=== PATIENT | male | born 1980 | race African-American/Black ===

== ENCOUNTER 2017-04-07 09:49 | Emergency (ER) | payer SELFPAY ==
[~2017-04-07 09:49] MED LIST: CIPRO.3%O EACH EAR; IBUP800 PO; Z.0.NO CURRENT MEDS
[2017-04-07 09:51] VITALS: BP 130/76; PULSE 89; RESP 15; TEMP 98.2; O2SAT 99
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
[2017-04-07] MEDS ORDERED: IBUP800T23 PO (10:13)
[2017-04-07] MEDS ORDERED: ROBA500T PO (10:13)
[2017-04-07] MEDS ORDERED: IBUPROFEN 800 MG TAB PO ONE (10:15)
[2017-04-07] MEDS ORDERED: METHOCARBAMOL 500 MG TAB PO ONE (10:15)
== END 2017-04-07 10:26 | disposition home or self-care (01) ==
LOC: NEPK 09:49
DX: M54.2 Cervicalgia (principal); M25.511 Pain in right shoulder
CPT/HCPCS: 99283

== ENCOUNTER 2017-05-07 21:54 | Emergency (ER) | payer SELFPAY ==
[~2017-05-07 21:54] MED LIST changes: -CIPRO.3%O EACH EAR; -IBUP800 PO; +IBUP800T23 PO; +ROBA500T PO; -Z.0.NO CURRENT MEDS
[2017-05-07 21:58] VITALS: BP 122/70; PULSE 100; RESP 16; TEMP 98.4; O2SAT 98
== END 2017-05-07 22:25 | disposition left against medical advice (07) ==
LOC: NED 21:54
DX: Z53.29 Procedure and treatment not carried out because of patient's decision for other reasons (principal)
CPT/HCPCS: 99281

== ENCOUNTER 2017-05-08 17:08 | Emergency (ER) | payer SELFPAY ==
[~2017-05-08] VITALS: Ht 180.3 cm; Wt 87.0 kg
[2017-05-08 17:09] VITALS: BP 120/75; PULSE 86; RESP 20; TEMP 97.8; O2SAT 98
--- NOTE | 2017-05-08 18:59 | PD ---
HPI Chief Complaint: Cold / Flu Symptoms Time Seen by Provider: 18:56 Travel History International Travel<30 days: No Contact w/Intl Traveler<30days: No Traveled to known affect area: No History of Present Illness HPI 36-year-old male presents to emergency department for evaluation of left groin pain. 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 Denies any other injury. Denies any abdominal pain. No nausea or vomiting. No bowel changes. No urinary symptoms. Patient has no other symptoms to report. [facility] Past Medical History Medical History: Denies Significant Hx Diminished Hearing: No Tetanus Vaccination: > 5 Years Influenza Vaccination: No Past Surgical History Surgical History: No Previous Surgery Social History Alcohol Use: Yes (6 PK DAY) Tobacco Use: Yes (2 PPD) Substance Use: Yes ([place]) Allergies-Medications (Allergen,Severity, Reaction): Coded Allergies: Penicillin (Verified Allergy, Unknown, 05/08/17) Reported Meds & Prescriptions Reported Meds & Active Scripts Active No Active Prescriptions or Reported Medications Review of Systems Except as stated in HPI: all other systems reviewed are Neg Physical Exam Narrative GENERAL: Well-nourished male patient in no acute distress SKIN: Focused skin assessment warm/dry. HEAD: Atraumatic. Normocephalic. EYES: Pupils equal and round. No scleral icterus. No injection or drainage. ENT: No nasal bleeding or discharge. Mucous membranes pink and moist. NECK: Trachea midline. No JVD. CARDIOVASCULAR: Regular rate and rhythm. No murmur appreciated. RESPIRATORY: No accessory muscle use. Clear to auscultation. Breath sounds equal bilaterally. GASTROINTESTINAL: Abdomen soft, non-tender, nondistended. Hepatic and splenic margins not palpable. MUSCULOSKELETAL: No obvious deformities. No clubbing. No cyanosis. No edema. GENITOURINARY: Testes descended bilaterally without evidence of rotation. No lesions or erythema. No urethral discharge. Palpable inguinal hernia on the left, soft, reducible. NEUROLOGICAL: Awake and alert. No obvious cranial nerve deficits. Motor grossly within normal limits. Normal speech. Data Data Last Documented VS Vital Signs Date Time Temp Pulse Resp B/P Pulse Ox O2 Delivery O2 Flow Rate FiO2 05/08/17 18:38 Room Air 05/08/17 17:09 97.8 86 20 120/75 98 MDM Medical Decision Making Medical Screen Exam Complete: Yes Emergency Medical Condition: Yes Medical Record Reviewed: Yes Differential Diagnosis Hernia incarcerated versus reducible versus muscle strain versus spasm Narrative Course 36-year-old male presents to emergency department for evaluation left groin pain. Physical exam is consistent with an inguinal hernia. This is completely reducible on its own. Patient also has a nonproductive, dry cough. He is encouraged to stop looking tobacco cigarettes. He is advised follow-up with primary care provider and seek general surgery evaluation. Patient agrees to return immediately with any acute worsening symptoms. Diagnosis Primary Impression: Left inguinal hernia Additional Impressions: Cough Tobacco abuse Referrals: General Surgeon Primary Care Physician Patient Instructions: Cigarette Smoking and Your Health (GEN), General Instructions, Inguinal Hernia (ED) Additional Instructions: Avoid heavy lifting Avoid straining with bowel movements Follow up with a primary care provider Return to ED with acute worsening of symptoms Med/Other Pt SpecificInfo: No Change to Meds Scripts No Active Prescriptions or Reported Meds Disposition: 01 DISCHARGE HOME Condition: Stable Oma Balderas May 08, 2017 18:59
== END 2017-05-08 19:33 | disposition home or self-care (01) ==
LOC: NEPD 17:08
DX: K40.90 Unilateral inguinal hernia, without obstruction or gangrene, not specified as recurrent (principal); R05 Cough; F17.210 Nicotine dependence, cigarettes, uncomplicated
CPT/HCPCS: 99281

== ENCOUNTER 2018-04-10 03:58 | Emergency (ER) | payer SELFPAY ==
[2018-04-10 04:06] VITALS: BP 121/80; PULSE 86; RESP 15; TEMP 97.7; O2SAT 98
[2018-04-10] MEDS ORDERED: METOCLOPRAMIDE HCL 10 MG/2 ML VIAL IV PUSH ONE (04:45)
[2018-04-10] MEDS ORDERED: KETOROLAC TROMETHAMINE 30 MG/ML (IVP) VIAL IV PUSH ONE (04:45)
[2018-04-10] MEDS ORDERED: HYDROmorphone HCL PF 2 MG/ML VIAL IV PUSH ONE ×2 (04:45→06:00)
--- NOTE | 2018-04-10 04:48 | PD ---
HPI Chief Complaint: Lump, Cyst, Hernia Time Seen by Provider: 04:42 Travel History International Travel<30 days: No Contact w/Intl Traveler<30days: No Traveled to known affect area: No History of Present Illness HPI 37-year-old male presents to the emergency department by private transportation for complaint of left groin swelling and pain associated with left inguinal hernia. Patient has had symptoms since awakening this morning. Patient noted hernia was more prominent this morning and worsened with cough. Patient was not able to reduce the hernia on his own. Patient has had diagnosis of left inguinal hernia 1 year. Patient was just seen 04/08/18 for same complaint and at that time hernia was reportedly readily reducible. Patient was encouraged to make an appointment with surgery for surgical repair on an elective basis of a left inguinal hernia. Patient states that he has not seen a surgeon regarding his. Patient's had no nausea or vomiting. No report of testicular pain no report of penile discharge or dysuria. Patient was up out of bed to urinate and did so without difficulty. Patient denies any chronic medical conditions. Patient takes no medications on a routine basis. Patient does admit to chronic cough associated with tobacco use. Patient does not report any fever or chills. The patient rates his pain 9/10 in intensity and reports it radiates to the left lower quadrant of the abdomen. Patient is unable to identify alleviating factors coughing and palpation and standing increases his discomfort. [facility] Past Medical History Narrative Medical Left inguinal hernia; alcohol use tobacco use marijuana use; nursing notes reviewed Diminished Hearing: No Past Surgical History Surgical History: No Previous Surgery Social History Alcohol Use: Yes (6 PK DAY) Tobacco Use: Yes (2 PPD) Substance Use: Yes ([facility]) Allergies-Medications (Allergen,Severity, Reaction): Coded Allergies: penicillin G (Unverified Allergy, Unknown, 04/10/18) Reported Meds & Prescriptions Reported Meds & Active Scripts Active No Active Prescriptions or Reported Medications Review of Systems Except as stated in HPI: all other systems reviewed are Neg General / Constitutional: No: Fever HENT: No: Congestion Cardiovascular: No: Chest Pain or Discomfort Respiratory: No: Shortness of Breath Gastrointestinal: Positive: Abdominal Pain, No: Vomiting Genitourinary: Positive: Other, No: Dysuria, Flank Pain Musculoskeletal: No: Myalgias, Arthralgias Skin: No Rash (Groin pain) Neurologic: No: Weakness Psychiatric: No: Anxiety Hematologic/Lymphatic: No: Lymph Node Enlargement Physical Exam Narrative GENERAL: Well-developed well-nourished male no acute distress no respiratory distress SKIN: Warm and dry. HEAD: Normocephalic. EYES: No scleral icterus. No injection or drainage. NECK: Supple, trachea midline. No JVD or lymphadenopathy. CARDIOVASCULAR: Regular rate and rhythm without murmurs, gallops, or rubs. RESPIRATORY: Breath sounds equal bilaterally. No accessory muscle use. GASTROINTESTINAL: Abdomen soft, non-tender, nondistended. bilaterally descended testicles circumcised male with no penile discharge at the urethral meatus attention left groin palpable mass that reproduces tenderness to palpation and mild difficulty with reduction on first attempt MUSCULOSKELETAL: No cyanosis, or edema. BACK: Nontender without obvious deformity. No CVA tenderness. Data Data Last Documented VS Vital Signs Date Time Temp Pulse Resp B/P (MAP) Pulse Ox O2 Delivery O2 Flow Rate FiO2 04/10/18 04:06 97.7 86 15 121/80 (94) 98 Orders Orders Ice/Cold Pack (04/10/18 04:42) ^ Saline Lock (04/10/18 04:42) Hydromorphone Pf Inj (Dilaudid Pf Inj) (04/10/18 04:45) Metoclopramide Inj (Reglan Inj) (04/10/18 04:45) Ketorolac Inj (Toradol Inj) (04/10/18 04:45) Complete Blood Count With Diff (04/10/18 04:42) Basic Metabolic Panel (Bmp) (04/10/18 04:42) Hydromorphone Pf Inj (Dilaudid Pf Inj) (04/10/18 06:00) Ct Abd/Pel W Iv Contrast(Rout) (04/10/18 ) Iohexol 350 Inj (Omnipaque 350 Inj) (04/10/18 06:15) Labs Laboratory Tests Test 04/10/18 05:02 White Blood Count 9.3 TH/MM3 Red Blood Count 4.21 MIL/MM3 Hemoglobin 13.8 GM/DL Hematocrit 40.4 % Mean Corpuscular Volume 96.0 FL Mean Corpuscular Hemoglobin 32.7 PG Mean Corpuscular Hemoglobin Concent 34.0 % Red Cell Distribution Width 13.1 % Platelet Count 259 TH/MM3 Mean Platelet Volume 7.0 FL Neutrophils (%) (Auto) 38.5 % Lymphocytes (%) (Auto) 52.3 % Monocytes (%) (Auto) 6.2 % Eosinophils (%) (Auto) 2.4 % Basophils (%) (Auto) 0.6 % Neutrophils # (Auto) 3.6 TH/MM3 Lymphocytes # (Auto) 4.9 TH/MM3 Monocytes # (Auto) 0.6 TH/MM3 Eosinophils # (Auto) 0.2 TH/MM3 Basophils # (Auto) 0.1 TH/MM3 CBC Comment AUTO DIFF Differential Total Cells Counted 100 Neutrophils % (Manual) 33 % Lymphocytes % 59 % Monocytes % 5 % Eosinophils % 3 % Neutrophils # (Manual) 3.1 TH/MM3 Differential Comment FINAL DIFF MANUAL Platelet Estimate NORMAL Platelet Morphology Comment NORMAL Stomatocytes 1+ Blood Urea Nitrogen 10 MG/DL Creatinine 0.90 MG/DL Random Glucose 85 MG/DL Calcium Level 8.1 MG/DL Sodium Level 143 MEQ/L Potassium Level 3.6 MEQ/L Chloride Level 109 MEQ/L Carbon Dioxide Level 25.6 MEQ/L Anion Gap 8 MEQ/L Estimat Glomerular Filtration Rate 116 ML/MIN MDM Medical Decision Making Medical Screen Exam Complete: Yes Emergency Medical Condition: Yes Medical Record Reviewed: Yes Interpretation(s) CBC & BMP Diagram 04/10/18 05:02 Calcium Level 8.1 L Vital Signs Date Time Temp Pulse Resp B/P (MAP) Pulse Ox O2 Delivery O2 Flow Rate FiO2 04/10/18 04:06 97.7 86 15 121/80 (94) 98 Last Impressions Abdomen/Pelvis CT 04/10/18 0000 Signed Impressions: CONCLUSION: 1. Herniation of fat through the left inguinal canal into the left scrotum ext ending over a length of at least 11 cm and a diameter of up to 5.7 cm with some fluid attenuation in the left scrotum. 2. Thin-walled cysts or emphysematous change at the lung bases of unknown etio logy. This should be further evaluated with chest CT. Differential Diagnosis Inguinal hernia incarcerated versus strangulated versus reducible, abdominal wall strain, UTI, groin mass Narrative Course Patient placed supine in mild Trendelenburg with ice pack to the left groin Reglan 10 mg IV administered Dilaudid 1 mg IV administered Toradol 30 mg IV administered Attempted manual reduction performed after ice pack Dilaudid and Toradol mass is markedly improved but still has some soft tissue prominence patient rates discomfort as mild 2-3/10 intensity additional Dilaudid 0.5 mg IV administered patient will be sent for CT abdomen pelvis with contrast to evaluate further to evaluate to see if any residual intestine and inguinal canal ring can be palpated with no palpable soft tissue mass however may be related to residual retained fat. Patient is aware of plan for CT imaging. Patient has returned from CT again with marked corneal prominence extending to the scrotum; patient does not appear to have a strangulated hernia but does appear to have an incarcerated hernia call placed to general surgery Physician Communication Physician Communication call placed to regional psychiatric director general surgery Dr Dixon --Dr Dixon WBI 7:30 Diagnosis Primary Impression: Left inguinal hernia Scripts No Active Prescriptions or Reported Meds Chyna Perez MD Apr 10, 2018 04:48
[2018-04-10 05:16] LABS: AUTOMATED NEUTROPHIL # 3.6 TH/MM3 (1.8-7.7); BASOPHIL # 0.1 TH/MM3 (0-0.2); BASOPHIL % 0.6 % (0.0-2.0); EOSINOPHIL # 0.2 TH/MM3 (0-0.4); EOSINOPHIL % 2.4 % (0.0-4.0); HEMATOCRIT 40.4 % (39.0-51.0); HEMOGLOBIN 13.8 GM/DL (13.0-17.0); LYMPH % 52.3 % (9.0-44.0); LYMPHOCYTE # 4.9 TH/MM3 (1.0-4.8); MEAN CORPUSCULAR HEMOGLOBIN 32.7 PG (27.0-34.0); MONO % 6.2 % (0.0-8.0); MONOCYTE # 0.6 TH/MM3 (0-0.9); NEUT % 38.5 % (16.0-70.0); PLATELET COUNT 259 TH/MM3 (150-450); RED BLOOD COUNT 4.21 MIL/MM3 (4.50-5.90); RED CELL DISTRIBUTION WIDTH 13.1 % (11.6-17.2); WHITE BLOOD COUNT 9.3 TH/MM3 (4.0-11.0)
[2018-04-10 05:39] LABS: BICARBONATE 25.6 MEQ/L (21.0-32.0); CALCIUM 8.1 MG/DL (8.5-10.1); CREATININE 0.9 MG/DL (0.60-1.30)
[2018-04-10 05:51] LABS: LYMPHOCYTES 59 % (9-44); MONOCYTES 5 % (0-8); NEUTROPHIL # MANUAL DIFF 3.1 TH/MM3 (1.8-7.7); POLYS (SEG NEUTROPHILS) 33 % (16-70)
[2018-04-10 05:52] LABS: STOMATOCYTES 1+ (NORMAL)
[2018-04-10] MEDS ORDERED: IOHEXOL 350 MG/ML 10 ML VIAL (for RAD DIAG) IVCONTRAST ONE (06:15)
--- NOTE | 2018-04-10 06:46 | RADRPT ---
EXAM DATE: 04/10/2018 6:17 AM EDT AGE/SEX: 37 years / Male INDICATIONS: Left groin pain. CLINICAL DATA: This is the patient's initial encounter. Patient reports that signs and symptoms have been present for 4 - 6 days and indicates a pain score of 10/10. MEDICAL/SURGICAL HISTORY: . Inguinal hernia. None. ORAL CONTRAST: No oral contrast ingested. RADIATION DOSE: 6.57 CTDI (mGy) COMPARISON: No prior exams available for comparison. TECHNIQUE: Multiple contiguous axial images were obtained through the abdomen and pelvis following b olus infusion of 100 ml Omnipaque 350 (iohexol) nonionic water-soluble contrast as a single exam do se. No oral contrast ingested. Using automated exposure control and adjustment of the mA and/or kV a ccording to patient size, the radiation dose was kept as low as reasonably achievable to obtain optim al diagnostic quality images. FINDINGS: There is herniation of fat through the left inguinal canal into the scrotum extending over a length o f at least 11 cm and a diameter of up to about 5.7 cm. There is some fluid within the upper left scro yuliya. No herniation of bowel is identified. Lung bases demonstrate some basilar lung cystic changes of unknown etiology. This may be an early man ifestation of emphysema. There is some dependent atelectasis. Liver, spleen, adrenals, kidneys and pancreas are unremarkable. No calcified gallstones or biliary du ctal dilatation. There is no free fluid or free air. No bowel obstruction. No acute bony abnormalities. CONCLUSION: 1. Herniation of fat through the left inguinal canal into the left scrotum extending over a length o f at least 11 cm and a diameter of up to 5.7 cm with some fluid attenuation in the left scrotum. 2. Thin-walled cysts or emphysematous change at the lung bases of unknown etiology. This should be f urther evaluated with chest CT. Electronically signed by: Jason Macario MD 04/10/2018 6:45 AM EDT
--- NOTE | 2018-04-10 07:59 | PD ---
Physical Exam Date Seen by Provider: Apr 10, 2018 Time Seen by Provider: 07:00 Narrative Patient signed out to me by Dr. Perez at change of shift. This is a 37-year- old male who had an inguinal hernia that was. Patient was slotted to see Dr. Dixon. Dr. Dixon came down and evaluated the patient and states that he will see the patient has an outpatient. It is a fat-containing hernia without bowel. Data Data Last Documented VS Vital Signs Date Time Temp Pulse Resp B/P (MAP) Pulse Ox O2 Delivery O2 Flow Rate FiO2 04/10/18 04:06 97.7 86 15 121/80 (94) 98 Orders Orders Ice/Cold Pack (04/10/18 04:42) ^ Saline Lock (04/10/18 04:42) Hydromorphone Pf Inj (Dilaudid Pf Inj) (04/10/18 04:45) Metoclopramide Inj (Reglan Inj) (04/10/18 04:45) Ketorolac Inj (Toradol Inj) (04/10/18 04:45) Complete Blood Count With Diff (04/10/18 04:42) Basic Metabolic Panel (Bmp) (04/10/18 04:42) Hydromorphone Pf Inj (Dilaudid Pf Inj) (04/10/18 06:00) Ct Abd/Pel W Iv Contrast(Rout) (04/10/18 ) Iohexol 350 Inj (Omnipaque 350 Inj) (04/10/18 06:15) Labs Laboratory Tests Test 04/10/18 05:02 White Blood Count 9.3 TH/MM3 Red Blood Count 4.21 MIL/MM3 Hemoglobin 13.8 GM/DL Hematocrit 40.4 % Mean Corpuscular Volume 96.0 FL Mean Corpuscular Hemoglobin 32.7 PG Mean Corpuscular Hemoglobin Concent 34.0 % Red Cell Distribution Width 13.1 % Platelet Count 259 TH/MM3 Mean Platelet Volume 7.0 FL Neutrophils (%) (Auto) 38.5 % Lymphocytes (%) (Auto) 52.3 % Monocytes (%) (Auto) 6.2 % Eosinophils (%) (Auto) 2.4 % Basophils (%) (Auto) 0.6 % Neutrophils # (Auto) 3.6 TH/MM3 Lymphocytes # (Auto) 4.9 TH/MM3 Monocytes # (Auto) 0.6 TH/MM3 Eosinophils # (Auto) 0.2 TH/MM3 Basophils # (Auto) 0.1 TH/MM3 CBC Comment AUTO DIFF Differential Total Cells Counted 100 Neutrophils % (Manual) 33 % Lymphocytes % 59 % Monocytes % 5 % Eosinophils % 3 % Neutrophils # (Manual) 3.1 TH/MM3 Differential Comment FINAL DIFF MANUAL Platelet Estimate NORMAL Platelet Morphology Comment NORMAL Stomatocytes 1+ Blood Urea Nitrogen 10 MG/DL Creatinine 0.90 MG/DL Random Glucose 85 MG/DL Calcium Level 8.1 MG/DL Sodium Level 143 MEQ/L Potassium Level 3.6 MEQ/L Chloride Level 109 MEQ/L Carbon Dioxide Level 25.6 MEQ/L Anion Gap 8 MEQ/L Estimat Glomerular Filtration Rate 116 ML/MIN MDM Medical Record Reviewed: Yes Supervised Visit with JAMIE: No Narrative Course 37-year-old gentleman presents with a hernia. This was in the left inguinal area. Patient was evaluated by Dr. Dixon who evaluated him and will see him as an outpatient and schedule procedure if needed. The patient is wanting to go home. He will be discharged home and told to return if he develops any nausea vomiting inability to have a bowel movement or any other recent concerns in. Diagnosis Primary Impression: Left inguinal hernia Referrals: Jabari Dixon MD Additional Instruction: Return if increased pain, nausea vomiting, inability to have bowel movement, or any other reason that concerns her. Scripts No Active Prescriptions or Reported Meds Disposition: 01 DISCHARGE HOME Condition: Stable Rio Crawford MD Apr 10, 2018 07:59
--- NOTE | 2018-04-10 13:09 | PD.CONS ---
HPI Service General surgery Consult Requested By Dr. Perez Reason for Consult Left inguinal hernia Primary Care Physician No Primary Care Physician History of Present Illness The patient is a 37-year-old male who presents with complaints of left inguinal and left lower abdominal pain which began early this morning. The patient has a known left inguinal hernia which has been present for approximately 1 year. 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 He came to the emergency department about 1 year ago and was recommended to see a surgeon. However he has not had insurance and was unable to follow up with anyone. The patient has a chronic bulge, however, this morning when he woke up with the more severe pain the bulge was larger. He had attempted reduction in the emergency department and it was felt that at least a portion of the hernia was reduced. However there did appear to be a persistent bulge and a CT abdomen and pelvis showed fat present in the left inguinal canal and left hemiscrotum. During my examination, the patient states that his pain is completely gone and he is hungry and desires discharge. The pain that he had when he presented is completely resolved. He denies ever having nausea vomiting constipation. I suspect he may have had enlarged hernia or involved intestines that were reduced. Review of Systems Constitutional: DENIES: Fever, Chills Eyes: DENIES: Eye pain, Vision loss Ears, nose, mouth, throat: DENIES: Oral lesions, Throat pain Respiratory: DENIES: Cough, Shortness of breath Cardiovascular: DENIES: Chest pain, Palpitations Gastrointestinal: COMPLAINS OF: Abdominal pain, DENIES: Nausea, Vomiting Musculoskeletal: DENIES: Back pain, Neck pain Integumentary: DENIES: Pruritus, Rash Neurologic: DENIES: Paresthesias, Seizures Past Family Social History Past Medical History Left inguinal hernia Past Surgical History None Reported Medications None Allergies: Coded Allergies: penicillin G (Unverified Allergy, Unknown, 04/10/18) Family History Noncontributory Social History Smokes 2 packs per day. Drinks sixpack daily. He is marijuana. Physical Exam Vital Signs Vital Signs Date Time Temp Pulse Resp B/P (MAP) Pulse Ox O2 Delivery O2 Flow Rate FiO2 04/10/18 04:06 97.7 86 15 121/80 (94) 98 Physical Exam GENERAL: Awake and alert. No acute distress. Cooperative. HEAD: Normocephalic. Atraumatic. EYES: Pupils equal round and reactive to light bilaterally. No scleral icterus. ENT: Moist oral mucosa. NECK: Trachea midline. CHEST: Nonlabored breathing. No respiratory distress. CARDIOVASCULAR: Regular rate and rhythm. ABDOMEN: Soft nontender nondistended. Fairly large left inguinal hernia which are now unable to reduce. He is nontender and there are no skin changes. He states this is the same as it is been for a long time. EXTREMITIES: No cyanosis or edema. SKIN: Warm, dry, nonjaundiced. Laboratory Laboratory Tests Test 04/10/18 05:02 White Blood Count 9.3 Red Blood Count 4.21 Hemoglobin 13.8 Hematocrit 40.4 Mean Corpuscular Volume 96.0 Mean Corpuscular Hemoglobin 32.7 Mean Corpuscular Hemoglobin Concent 34.0 Red Cell Distribution Width 13.1 Platelet Count 259 Mean Platelet Volume 7.0 Neutrophils (%) (Auto) 38.5 Lymphocytes (%) (Auto) 52.3 Monocytes (%) (Auto) 6.2 Eosinophils (%) (Auto) 2.4 Basophils (%) (Auto) 0.6 Neutrophils # (Auto) 3.6 Lymphocytes # (Auto) 4.9 Monocytes # (Auto) 0.6 Eosinophils # (Auto) 0.2 Basophils # (Auto) 0.1 CBC Comment AUTO DIFF Differential Total Cells Counted 100 Neutrophils % (Manual) 33 Lymphocytes % 59 Monocytes % 5 Eosinophils % 3 Neutrophils # (Manual) 3.1 Differential Comment FINAL DIFF MANUAL Platelet Estimate NORMAL Platelet Morphology Comment NORMAL Stomatocytes 1+ Blood Urea Nitrogen 10 Creatinine 0.90 Random Glucose 85 Calcium Level 8.1 Sodium Level 143 Potassium Level 3.6 Chloride Level 109 Carbon Dioxide Level 25.6 Anion Gap 8 Estimat Glomerular Filtration Rate 116 Result Diagram: 04/10/18 0502 04/10/18 0502 Imaging Last Impressions Abdomen/Pelvis CT 04/10/18 0000 Signed Impressions: CONCLUSION: 1. Herniation of fat through the left inguinal canal into the left scrotum ext ending over a length of at least 11 cm and a diameter of up to 5.7 cm with some fluid attenuation in the left scrotum. 2. Thin-walled cysts or emphysematous change at the lung bases of unknown etio logy. This should be further evaluated with chest CT. Assessment and Plan Assessment and Plan 37-year-old male with left inguinal hernia incarcerated with fat likely omentum. He states this is consistent with how it has been in the past. He did have worsening pain this morning but after partial reduction is completely improved. He wants to go home. I am fine with discharge and gave him the signs and symptoms to look for for strangulation. He will call my office for follow-up appointment. Zack,Jabari PRAKASH Apr 10, 2018 13:09
== END 2018-04-10 08:05 | disposition home or self-care (01) ==
LOC: NEPC 03:58
DX: K40.30 Unilateral inguinal hernia, with obstruction, without gangrene, not specified as recurrent (principal); F17.210 Nicotine dependence, cigarettes, uncomplicated; F12.90 Cannabis use, unspecified, uncomplicated
CPT/HCPCS: 74177; 80048; 85007; 85027; 96374; 96375; 96376; 99284; J1170; J1885; J2765; Q9967

== ENCOUNTER 2018-07-01 10:27 | Inpatient (IN) ==
[2018-07-01] MEDS ORDERED: Morphine Inj 4 MG/ML Vial IV.PUSH ONE (11:46)
--- NOTE | 2018-07-01 11:52 | ED ---
HPI General Chief complaint: Extremity Problem,Nontraumatic Stated complaint: groin pain WC Time Seen by Provider: 07/01/18 10:42 Source: patient, RN notes reviewed and old records reviewed Mode of arrival: ambulatory Limitations: no limitations History of Present Illness HPI Narrative: 37-year-old male states he has had his hernia out since yesterday and cannot get it back again. He was transferred from fast track when they could not get it back in either. He denies any other concurrent complaints. Complaint: hernia Onset (ago): hour(s) Duration: constant Location: left inguinal region Severity: moderate Quality: aching Relieving factors: none Exacerbating factors: movement Reports denies other symptoms Related Data Home Medications Medication Instructions Recorded Confirmed No Known Home Medications 07/01/18 07/01/18 Allergies Allergy/AdvReac Type Severity Reaction Status Date / Time penicillin G Allergy Unknown Verified 04/29/18 14:02 Review of Systems ROS: all other systems reviewed are negative COUNTS INCLUDE 234 BEDS AT THE [facility] Medical History Medical History Patient denies medical problems (Acute) Social History Social History Second Hand Smoke Exposure: No Smoking Status: Current every day smoker Tobacco Type: Cigarettes How Often Do You Have a Drink Containing Alcohol: 4 or more times a week Recent Travel in [facility] within the Last 8 Weeks: No Recent Out of Country Travel within the Last 8 Weeks: No Substance Abuse Detail Alcohol: Substance Use Status: Active Route Used Substance Abuse: By Mouth Immunization History Tetanus Immunization: <5 Years Hx Influenza Vaccine This Season: Yes Exam Narrative Exam Narrative: GENERAL: 37 y/o male in no apparent distress SKIN: Focused skin assessment warm/dry. HEAD: Atraumatic. Normocephalic. EYES: Pupils equal and round. No scleral icterus. No injection or drainage. ENT: No nasal bleeding or discharge. Mucous membranes pink and moist. NECK: Trachea midline. CARDIOVASCULAR: Regular rate and rhythm. RESPIRATORY: No accessory muscle use. Clear to auscultation. Breath sounds equal bilaterally. GASTROINTESTINAL: Abdomen soft, tender in left lower groin with hernia noted without overlying skin changes that I am unable to reduce on first attempt, nondistended. Hepatic and splenic margins not palpable. MUSCULOSKELETAL: No obvious deformities. No clubbing. No cyanosis. No edema. NEUROLOGICAL: Awake and alert. No obvious cranial nerve deficits. Motor grossly within normal limits. Normal speech. PSYCHIATRIC: Appropriate mood and affect; insight and judgment normal. Course Reevaluation(s) Reevaluation #1: patient agrees to plan Consultations Consultation #1: dr trevino thru OR nurse states he will call back in 30 minutes Time: 12:34 Consultation #2: Dr. Trevino came and examined patient and will take to the OR for incarcerated hernia, agrees to observation on his service Initial Documented Vital Signs Temperature 98.4 F 07/01/18 10:31 Pulse Rate 89 07/01/18 10:31 Respiratory Rate 16 07/01/18 10:31 Blood Pressure 120/61 07/01/18 10:31 Pulse Oximetry 98 07/01/18 10:31 Last Documented Vital Signs Temperature 98.4 F 07/01/18 10:31 Pulse Rate 89 07/01/18 10:31 Respiratory Rate 16 07/01/18 10:31 Blood Pressure 120/61 07/01/18 10:31 Pulse Oximetry 98 07/01/18 10:31 Discharge Plan Discharge Disposition Patient Disposition: 30 Still Patient Discharge Condition Condition: Stable Discharge Details Diagnosis: Incarcerated inguinal hernia Physicians Team ED Provider: Mimi Veliz Primary Care Provider: Primary Care Anjelica Kiser Attending Provider: Reece Trevino Other Providers: Surgeons,[facility] Status ED Status: Admitted Observation Patient Medical Decision Making MDM Narrative Medical decision making narrative: Will place ice back in place in Trendelenburg and provide with morphine and attempt reduction again Medical Screen Exam Complete: Yes Emergency Medical Condition: Yes Differential Diagnosis Differential Diagnosis: Hernia, obstruction, mass Lab Data Lab results reviewed: Yes I reviewed the patient's lab results. Result diagrams: 07/01/18 12:00 07/01/18 12:00 Lab Results 07/01/18 07/01/18 Range/Units 12:00 12:00 WBC 8.2 (4.0-11.0) th/mm3 RBC 4.38 L (4.50-5.90) mil/mm3 Hgb 13.9 (13.0-17.0) gm/dL Hct 42.5 (39.0-51.0) % MCV 97.2 (80.0-100.0) fL MCH 31.7 (27.0-34.0) pg MCHC 32.7 (32.0-36.0) % RDW 13.5 (11.6-17.2) % Plt Count 263 (150-450) th/mm3 MPV 6.9 L (7.0-11.0) fL Neut % (Auto) 42.4 (16.0-70.0) % Lymph % (Auto) 48.1 H (9.0-44.0) % Dickenson % (Auto) 6.7 (0.0-8.0) % Eos % (Auto) 1.6 (0.0-4.0) % Baso % (Auto) 1.2 (0.0-2.0) % Neut # (Auto) 3.5 (1.8-7.7) th/mm3 Lymph # (Auto) 3.9 (1.0-4.8) th/mm3 Dickenson # (Auto) 0.5 (0.0-0.9) th/mm3 Eos # (Auto) 0.1 (0.0-0.4) th/mm3 Baso # (Auto) 0.1 (0.0-0.2) th/mm3 WBC Differential . Differential Comment Auto diff final Sodium 142 (136-145) meq/L Potassium 4.1 (3.5-5.1) meq/L Chloride 109 H (98-107) meq/L Carbon Dioxide 25.5 (21.0-32.0) meq/L Anion Gap 8 (5-15) meq/L BUN 12 (7-18) mg/dL Creatinine 1.01 (0.60-1.30) mg/dL Estimated GFR Greater than 89 (>89) mL/min Random Glucose 84 (74-106) mg/dL Calcium 8.6 (8.5-10.1) mg/dL Imaging Data Attestation: I personally reviewed and interpreted this imaging study as follows : Radiologist's impression: Abdomen/Pelvis CT 07/01/18 13:36 CONCLUSION: 1. Small focus of nonspecific induration in the left lower quadrant mesentery 2. Fat-containing left inguinal hernia
[2018-07-01] MEDS ORDERED: Succinylcholine Inj 100 MG/5 ML Syringe IV.PUSH ONE (12:00)
[2018-07-01] MEDS ORDERED: Ketorolac Inj 30 MG/ML (IVP) Vial IV.PUSH ONE (12:00)
[2018-07-01] MEDS ORDERED: Lidocaine PF 1% Inj 5 ML Syringe INFILTRATN ONE (12:00)
[2018-07-01 12:23] LABS: Baso # (Auto) 0.1 th/mm3 (0.0-0.2); Baso % (Auto) 1.2 % (0.0-2.0); Eos # (Auto) 0.1 th/mm3 (0.0-0.4); Eos % (Auto) 1.6 % (0.0-4.0); Hematocrit 42.5 % (39.0-51.0); Hemoglobin 13.9 gm/dL (13.0-17.0); Lymph # (Auto) 3.9 th/mm3 (1.0-4.8); Lymph % (Auto) 48.1 % (9.0-44.0); Mean Corpuscular HGB Conc 32.7 % (32.0-36.0); Mean Corpuscular Hemoglobin 31.7 pg (27.0-34.0); Mean Corpuscular Volume 97.2 fL (80.0-100.0); Mean Platelet Volume 6.9 fL (7.0-11.0); Mono # (Auto) 0.5 th/mm3 (0.0-0.9); Mono % (Auto) 6.7 % (0.0-8.0); Neut # (Auto) 3.5 th/mm3 (1.8-7.7); Neut % (Auto) 42.4 % (16.0-70.0); Platelet Count 263 th/mm3 (150-450); Red Blood Count 4.38 mil/mm3 (4.50-5.90); Red Cell Distribution Width 13.5 % (11.6-17.2); White Blood Count 8.2 th/mm3 (4.0-11.0)
[2018-07-01 12:38] LABS: Anion Gap 8 meq/L (5-15); Blood Urea Nitrogen 12 mg/dL (7-18); Calcium 8.6 mg/dL (8.5-10.1); Carbon Dioxide 25.5 meq/L (21.0-32.0); Chloride 109 meq/L (98-107); Glomerular Filtration Rate Greater Than 89 mL/min (>89); Glucose,Random 84 mg/dL (74-106); Potassium 4.1 meq/L (3.5-5.1); Sodium 142 meq/L (136-145)
--- NOTE | 2018-07-01 14:21 | CT ---
EXAM DATE: 07/01/2018 2:07 PM EDT AGE/SEX: 37 years / Male INDICATIONS: Abdominal pain. CLINICAL DATA: This is the patient's initial encounter. Patient reports that signs and symptoms have been present for 2 days and indicates a pain score of 10/10. MEDICAL/SURGICAL HISTORY: . Inguinal hernia. None. ORAL CONTRAST: No oral contrast ingested. RADIATION DOSE: 13.28 CTDI (mGy) COMPARISON: [facility] – [place], [place], CT ABDOMEN & PELVIS W CONTRAST, 04/29/2018. . TECHNIQUE: Multiple contiguous axial images were obtained through the abdomen and pelvis following b olus infusion of 93 ml Omnipaque 350 (iohexol) nonionic water-soluble contrast as a single exam dos e. No oral contrast ingested. Using automated exposure control and adjustment of the mA and/or kV ac cording to patient size, radiation dose was kept as low as reasonably achievable to obtain optimal di agnostic quality images. DICOM format image data is available electronically for review and comparis on. FINDINGS: Lower Lungs: Multiple parenchymal bulla and subpleural blebs in the lung bases. Liver: The liver has a homogeneous density without space-occupying lesion. There is no dilation of th e biliary tree. Spleen: Homogeneous density without enlargement. Pancreas: Unremarkable without mass or calcification. Kidneys: Normal in size and shape. No evidence of mass or hydronephrosis. Adrenal Glands: Tiny low density nodule involving the left adrenal gland which is unchanged from pr evious Aorta: The aorta and proximal iliac vessels are grossly unremarkable without aneurysmal dilation. Bowel/Mesentery: The bowel loops are normal in caliber. No abnormal wall thickening or dilatation. T here is a small focus of induration in the mesenteric fat or omentum in the left lower quadrant which is nonspecific. This does not clearly seen to be associated with any focal inflammatory process of t he bowel. The appendix is seen and appears normal. Abdominal Wall: Intact. Retroperitoneum: No evidence of adenopathy in the retrocrural, para-aortic, or deep pelvic regions. Bladder: Contours are smooth. Reproductive Organs: No abnormal masses or calcifications seen. Inguinal: Sizable fat-containing left inguinal hernia which extends into the scrotum Bony Structures: Unremarkable. CONCLUSION: 1. Small focus of nonspecific induration in the left lower quadrant mesentery 2. Fat-containing left inguinal hernia Electronically signed by: Martin Black MD 07/01/2018 2:19 PM EDT
[2018-07-01] MEDS ORDERED: Sugammadex Inj 200 MG/2 ML Vial IV.PUSH ONE (14:29)
[2018-07-01] MEDS ORDERED: HYDROmorphone PF Inj 2 MG/ML Vial ONE ×2 (14:30→18:08)
[2018-07-01] MEDS ORDERED: Bisacodyl 10 MG Supp RECTAL PRN (15:00)
[2018-07-01] MEDS ORDERED: Ketorolac Inj 30 MG/ML (IVP) Vial IV.PUSH PRN (15:00)
[2018-07-01] MEDS ORDERED: Promethazine 25 MG Supp RECTAL PRN (15:00)
[2018-07-01] MEDS ORDERED: Post-op Orders (for Pharmacy) OTHER ONE (15:00)
--- NOTE | 2018-07-01 15:00 | P.OP ---
- Preoperative Diagnosis (1) Incarcerated inguinal hernia - Postoperative Diagnosis (1) Incarcerated inguinal hernia Date of procedure: 07/01/18 Procedure: open left inguinal hernia repair Anesthesia: GETA Surgeon: Reece Kang MD Estimated blood loss (mL): 5 Pathology: none sent Operation and Findings: incarcerated hernia
[2018-07-01] MEDS ORDERED: Clindamycin Inj 600 MG/4 ML Vial ONE (15:06)
[2018-07-01] MEDS ORDERED: Bupivacaine Liposomal PF 1.3% Inj 20 ML Vial ONE (15:17)
--- NOTE | 2018-07-01 15:57 | MH ---
cc: Reece Kang MD DATE OF ADMISSION: 07/01/2018 CHIEF COMPLAINT: Left inguinal hernia, incarceration. HISTORY OF PRESENT ILLNESS: The patient is a 37-year-old male who presents with acute onset of left inguinal groin pain. The patient noted to have history of inguinal hernia approximately 1 year and has had intermittent incarcerations and reductions. The patient presents with acute onset of severe 9/10 pain. He states it starts suddenly with a bulging on his left groin and inability to reduce this. He came to the emergency department for further evaluation. Attempts at reduction were unsuccessful. Therefore, decision was made for operative intervention including open inguinal hernia repair. PAST MEDICAL HISTORY: Inguinal hernia. PAST SURGICAL HISTORY: The patient has no surgeries. ALLERGIES: THE PATIENT HAS PENICILLIN ALLERGY. MEDICATIONS: See EMR. FAMILY HISTORY: Denies diabetes or hypertension. SOCIAL HISTORY: Positive smoking, occasional EtOH. Denies IVDA. REVIEW OF SYSTEMS: GENERAL: Complains of groin pain. HEENT: Denies eye pain, ear pain. NECK: Denies swelling or pain. LUNGS: Denies cough or wheeze. HEART: Denies palpitations or chest pain. ABDOMEN: Complains of a hernia and groin pain. GENITOURINARY: As above, groin pain. ENDOCRINE: Denies polyuria or polydipsia. INTEGUMENT: Denies any masses or lesions. PSYCHIATRIC: Appropriate mood, appropriate judgment. PHYSICAL EXAMINATION: GENERAL: The patient is in no acute distress. VITAL SIGNS: Temperature 98.4, pulse 89, respirations 16, blood pressure 121/61, saturation 98%. HEENT: Pupils equal, round, reactive. NECK: Supple. Trachea midline. LUNGS: Clear to auscultation, bilateral expansion. HEART: S1, S2 regular. ABDOMEN: Soft. Inguinal area positive tenderness to palpation. Incarcerated left inguinal hernia. Significant severe tenderness to palpation unreducible. EXTREMITIES: Warm and well perfused. NEUROLOGIC: GCS 15, 5/5 motor in all extremities. PSYCHIATRIC: Appropriate mood, appropriate judgment. LABORATORY AND DIAGNOSTIC DATA: WBC 8.2, hemoglobin 13.1, hematocrit 42.5, platelets 263. Sodium 142, potassium 4.1, chloride 109, BUN 12, creatinine 1, calcium 8.6. A CT scan is pending. ASSESSMENT: The patient is a 37-year-old male with history of left inguinal hernia, current incarceration. PLAN: After full clinical, radiologic, and laboratory workup, the patient was noted to have the above issues. At this point, the patient has a nonreducible left inguinal hernia. We will plan for operative intervention including open left inguinal hernia repair. Discussed with the patient in detail if concern for bowel incarceration the patient will need primary repair. However, if the bowel looks healthy and is easily reducible, then we will consider using mesh. Discussed with the patient possible bowel resection. The patient understands this. Further understands the risk of postop pain. Numbness, bleeding, infection risk discussed as well. Further discussed with the patient I recommend no smoking. MD PRESTON Beard/krysten , 03:09 PM , 03:18 PM
[2018-07-01] MEDS ORDERED: fentaNYL Citrate Inj 100 MCG/2 ML Ampul ONE (17:04)
[2018-07-01] MEDS ORDERED: *Meperidine Inj 25 MG/ML Vial PERIprocedural Use ONLY ONE (17:06)
[2018-07-01] MEDS ORDERED: *morphine SULFATE 4 MG/ML PERIprocedure ONLY ONE ×3 (17:20→17:40)
[2018-07-01] MEDS: Sod Chloride 0.9% Inj 1,000 ML IV.CONT SCH (17:23)
[2018-07-01] MEDS ORDERED: LORazepam 1 MG Tablet PO PRN (18:08)
--- NOTE | 2018-07-01 20:27 | MP ---
cc: Reece Kang MD DATE OF OPERATION: 07/01/2018 PREOPERATIVE DIAGNOSIS: Incarcerated left inguinal hernia. POSTOPERATIVE DIAGNOSIS: Incarcerated left inguinal hernia. PROCEDURE PERFORMED: Open left inguinal hernia repair with Atrium mesh. SURGEON: Reece Kang MD HEALTH AND SAFETY TECHNICIAN: Lane Miguel ANESTHESIA: GETA. IV FLUIDS: See anesthesia sheet. ESTIMATED BLOOD LOSS: 15 mL DRAINS: None. COMPLICATIONS: None. WOUND CLASSIFICATION: Clean. FINDINGS: Large incarcerated left inguinal hernia. Omental fat was able to be reduced. No evidence of bowel compromise. SPECIMENS: None. INDICATIONS: The patient is a 37-year-old male who presents with acute onset of left groin pain. The patient noted to have an inguinal hernia for approximately 1 year with intermittent obstructions. The patient came with incarcerated hernia and severe 9/10 pain. Decision was made for urgent operative intervention including open hernia repair discussed with the patient in detail, he understood and agreed. Discussed risks, benefits, alternatives such as postop bleeding, numbness and possible infection. Given the fact of incarceration deemed necessary for operative intervention. DETAILS OF PROCEDURE: The patient was taken to the operative suite, placed in the supine position. He was prepped and draped in the usual sterile fashion after induction of general endotracheal anesthesia. Brief timeout was done stating correct patient, procedure, and surgical site. We were all in agreement with this. Attention first directed to the ASIS and pubic tubercle. An oblique incision was made, 4.5 cm. This was done with a 15 blade after injection of Exparel local anesthesia. Further dissection done with electric Bovie electrocautery through Tiffany's fascia down to the external oblique. The Kittner was used to clean the fascia off the external oblique fascia and a stab ortega incision was made along the direction of the fibers of the external oblique. Metzenbaum scissors were used to open up the external oblique both cephalad and caudad. Identification of the ilioinguinal nerve was done and protected. The cord structures and hernia sac were noted. A Kittner was used to dissect down after identification of the pubic tubercle in order to mobilize the sac and its cord structures. This was encircled with a [place] drain to assist in retraction. Once this had been completely cleaned off, the Atrium mesh was obtained, cut to size to fit and reinforce the floor in the inguinal area. The pubic tubercle was identified and interrupted sutures of 0 Ethibond were used in interrupted fashion medially along the conjoined tendon and Eusebio's. Laterally shelving edge. This was done, the 2 tails were cut to recreate the internal ring. Sutures were done to fasten the leaflets of the mesh laterally. The testicle was reduced back down in the scrotum. Prior to this, the sac was mobilized and this was done from the cord structures. The sac was ligated with 0 Vicryl and then excised with electric Bovie cautery. This was reduced back into the abdomen. The mesh was noted to fit snugly in place and completely covered the defect. The external oblique was then closed in layers with 3-0 Vicryl recreating the external ring. Local anesthetic was injected. Tiffany's was closed with 3-0 Vicryl in layers and a 4-0 Monocryl done in subcuticular fashion. Sterile dressings were placed. The patient tolerated the procedure well and there were no intraoperative complications. All lap and needle counts were correct at the end of the procedure. The patient was extubated and taken stable to PACU. MD PRESTON Beard/rowdy , 05:55 PM , 06:06 PM
[2018-07-01 22:21] VITALS: RESP 18
[2018-07-01] MEDS ORDERED: Clindamycin 600 mg/NS Premix 600 MG/50 ML PIGGYBACK IV.SIG SCH (23:00)
[2018-07-01] MEDS: Senna/Docusate Sodium 8.6/50 MG Tablet PO SCH (23:35)
[2018-07-02] MEDS: Morphine Sulfate Inj 2 MG/ML Vial IV.PUSH PRN ×2 (00:14→08:03)
[2018-07-02] MEDS: Sod Chloride 0.9% Inj 1,000 ML IV.CONT SCH ×2 (05:50→11:41)
[2018-07-02] MEDS: Senna/Docusate Sodium 8.6/50 MG Tablet PO SCH (08:03)
[2018-07-02 08:34] VITALS: BP 111/66; PULSE 94; TEMP 98.1; O2SAT 97
--- NOTE | 2018-07-02 11:37 | P.PNGS ---
Subjective Patient reports: feels better, still having pain (incisional pain), no bowel movement Physical Exam Vital signs: Vital Signs 07/01/18 14:55 07/01/18 16:54 07/01/18 17:00 Temperature 98.3 F 97.5 F L Pulse Rate 76 96 H 92 H Respiratory Rate 18 16 16 Blood Pressure 138/93 H 125/86 130/93 H Pulse Oximetry 99 96 07/01/18 17:15 07/01/18 17:30 07/01/18 17:45 Temperature Pulse Rate 90 90 90 Respiratory Rate 18 18 19 Blood Pressure 128/71 132/77 136/81 Pulse Oximetry 94 L 94 L 93 L 07/01/18 18:00 07/01/18 19:00 07/01/18 20:35 Temperature 97.5 F L Pulse Rate 88 94 H 87 Respiratory Rate 17 18 16 Blood Pressure 130/78 150/86 H 128/78 Pulse Oximetry 95 93 L 95 07/01/18 22:20 07/02/18 00:00 07/02/18 04:00 Temperature 97.1 F L 97.3 F L 97.8 F Pulse Rate 89 85 87 Respiratory Rate 18 18 18 Blood Pressure 171/81 H 136/78 132/76 Pulse Oximetry 95 96 96 07/02/18 08:00 Temperature 98.1 F Pulse Rate 94 H Respiratory Rate 18 Blood Pressure 111/66 Pulse Oximetry 97 Intake & Output 07/01/18 07/02/18 07/02/18 18:59 06:59 18:59 Intake Total 1999 1050 / 1050 Output Total Balance 1984 1050 / 1050 Weight 86.183 kg 86.183 kg Intake: IV 1050 / 1050 NS Inj 1,000 ML @ 100 mls/hr IV 1000 / 1000 .CONT .Q10H KEN Rx#:[id number] Cleocin 600 mg/NS Premix 600 mg 50 / 50 In 50 ml @ 100 mls/hr IV.SIG Q8H KEN Rx#:[id number] Anesthesia Amount 1999 Output: Estimated Blood Loss - Constitutional no acute distress - Routine Respiratory Exam Present: CTA bilaterally - Routine Cardiovascular Exam Present: RRR - Routine Abdominal Exam Present: soft (left groin incision c/d/i) Assessment and Plan - Plan pod 1 left groin incarcerated inguinal hernia PLAN Reg diet oob pain control d/c today
[2018-07-02] MEDS ORDERED: Enoxaparin Inj 30 MG/0.3 ML Syringe SQ SCH ×2 (15:00→16:00)
== END 2018-07-02 12:38 | disposition home or self-care (01) ==
LOC: NEPC 10:27 → NEDA 10:27 → OBSVTOIN 14:33 → NEDA 14:55 → N05 21:18
PROVIDERS: ADMIT Surgery; ATTEND Surgery